=== PATIENT | male | born 1950 | race Caucasian/White ===

== ENCOUNTER → 2017-03-28 | Outpatient (REF) | payer OTHER ==
[2017-03-28 15:22] LABS: ALBUMIN 3.7 GM/DL (3.2-5.2); ALBUMIN/GLOBULIN RATIO 1.19 (1.00-1.93); BILIRUBIN,TOTAL 0.4 MG/DL (0.2-1.0); CREATININE FOR GFR 1.33 MG/DL (0.70-1.30); GLOMERULAR FILTRATION RATE 57.3 (>49); POTASSIUM SERUM 4.5 MEQ/L (3.5-5.1); TOTAL PROTEIN 6.8 GM/DL (6.4-8.2)
== END ==
LOC: M SFHCLACO 09:06
PROVIDERS: ATTEND Physician Assistant
DX: I10 Essential (primary) hypertension (principal); E78.2 Mixed hyperlipidemia

== ENCOUNTER → 2017-10-01 | Outpatient (REF) | payer MEDICARE, OTHER ==
[2017-10-01 13:23] LABS: ALBUMIN 3.6 GM/DL (3.2-5.2); ALKALINE PHOSPHATASE 53 U/L (45-117); ALT/SGPT 40 U/L (12-78); ANION GAP 6 MEQ/L (8-16); AST/SGOT 34 U/L (7-37); BILIRUBIN,TOTAL 0.4 MG/DL (0.2-1.0); BLOOD UREA NITROGEN 14 MG/DL (7-18); CALCIUM LEVEL 9.4 MG/DL (8.8-10.2); CARBON DIOXIDE LEVEL 31 MEQ/L (21-32); CHLORIDE LEVEL 93 MEQ/L (98-107); CHOLESTEROL LEVEL 249 MG/DL (<200); CREATININE FOR GFR 1.17 MG/DL (0.70-1.30); GLOMERULAR FILTRATION RATE > 60.0 (>49); GLUCOSE, FASTING 101 MG/DL (80-110); POTASSIUM SERUM 4.6 MEQ/L (3.5-5.1); SODIUM LEVEL 130 MEQ/L (136-145); TOTAL PROTEIN 6.6 GM/DL (6.4-8.2); TRIGLYCERIDES LEVEL 120 MG/DL (<150); URIC ACID 3.5 MG/DL (3.5-7.2)
== END ==
LOC: M SFHCLACO 08:54
PROVIDERS: ATTEND Physician Assistant
DX: I10 Essential (primary) hypertension (principal); E78.2 Mixed hyperlipidemia; M10.9 Gout, unspecified

== ENCOUNTER → 2018-04-15 | Outpatient (REF) | payer OTHER, MEDICARE ==
[2018-04-15 15:09] LABS: ALBUMIN 3.6 GM/DL (3.2-5.2); ALKALINE PHOSPHATASE 57 U/L (45-117); ALT/SGPT 31 U/L (12-78); ANION GAP 8 MEQ/L (8-16); AST/SGOT 32 U/L (7-37); BILIRUBIN,TOTAL 0.4 MG/DL (0.2-1.0); BLOOD UREA NITROGEN 16 MG/DL (7-18); CARBON DIOXIDE LEVEL 27 MEQ/L (21-32); CHLORIDE LEVEL 97 MEQ/L (98-107); CHOLESTEROL LEVEL 220 MG/DL (<200); CHOLESTEROL RISK RATIO 3.606 (<5); CREATININE FOR GFR 1.12 MG/DL (0.70-1.30); GLOMERULAR FILTRATION RATE > 60.0 (>49); GLUCOSE, FASTING 88 MG/DL (70-100); HDL CHOLESTEROL 61 MG/DL (>40); LDL CHOLESTEROL 133.2 MG/DL (<100); NON-HDL-C 159 MG/DL; POTASSIUM SERUM 4.3 MEQ/L (3.5-5.1); SODIUM LEVEL 132 MEQ/L (136-145); TOTAL PROTEIN 6.6 GM/DL (6.4-8.2); TRIGLYCERIDES LEVEL 129 MG/DL (<150)
== END ==
LOC: M SFHCLACO 08:11
DX: I10 Essential (primary) hypertension (principal); E78.2 Mixed hyperlipidemia; M10.9 Gout, unspecified
CPT/HCPCS: 84550

== ENCOUNTER → 2021-06-12 | Outpatient (REF) | payer MEDICARE | LOC: M SFHCADAM 11:41 | PROVIDERS: ATTEND Physician Assistant | DX: R73.9 Hyperglycemia, unspecified (principal) | CPT/HCPCS: 83036; G0463 ==

== ENCOUNTER → 2022-04-03 | Outpatient (REF) | payer MEDICARE ==
[2022-04-03 13:05] LABS: ALBUMIN 3.9 GM/DL (3.2-5.2); BILIRUBIN,TOTAL 0.6 MG/DL (0.2-1.0); CALCIUM LEVEL 9.9 MG/DL (8.8-10.2); CHOLESTEROL RISK RATIO 4.476 (<5); CREATININE FOR GFR 1.65 MG/DL (0.70-1.30); POTASSIUM SERUM 4.6 MEQ/L (3.5-5.1); TOTAL PROTEIN 7.4 GM/DL (6.4-8.2); URIC ACID 3.2 MG/DL (3.5-7.2)
[2022-04-03 13:18] LABS: HEMOGLOBIN A1c 5.9 %
== END ==
LOC: M SFHCADAM 10:26
PROVIDERS: ATTEND Physician Assistant
DX: E78.2 Mixed hyperlipidemia (principal); I10 Essential (primary) hypertension; R73.9 Hyperglycemia, unspecified; Z12.5 Encounter for screening for malignant neoplasm of prostate; M10.9 Gout, unspecified
CPT/HCPCS: 80053; 80061; 83036; 84550; G0103

== ENCOUNTER → 2022-07-18 | Outpatient (REF) | payer MEDICARE ==
[2022-07-18 17:31] LABS: HEMOGLOBIN A1c 5.7 %
[2022-07-18 17:32] LABS: HEMATOCRIT 35.9 % (42.0-52.0); HEMOGLOBIN 12.3 g/dl (13.5-17.5); MEAN CORPUSCULAR HEMOGLOBIN 32.5 pg (27.0-33.0); MEAN CORPUSCULAR HGB CONC 34.3 g/dl (32.0-36.5); MEAN CORPUSCULAR VOLUME 94.7 fl (80.0-96.0); PLATELET COUNT, AUTOMATED 456 10^3/uL (150-450); RED BLOOD COUNT 3.79 10^6/uL (4.30-6.10); WHITE BLOOD COUNT 7.8 10^3/uL (4.0-10.0)
[2022-07-18 17:54] LABS: ALBUMIN 3.8 GM/DL (3.2-5.2); BILIRUBIN,TOTAL 0.6 MG/DL (0.2-1.0); CREATININE FOR GFR 1.53 MG/DL (0.70-1.30); POTASSIUM SERUM 4.3 MEQ/L (3.5-5.1); TOTAL PROTEIN 7.4 GM/DL (6.4-8.2)
== END ==
LOC: M SFHCADAM 15:23
PROVIDERS: ATTEND Physician Assistant
DX: N18.32 Chronic kidney disease, stage 3b (principal); H91.93 Unspecified hearing loss, bilateral; R73.01 Impaired fasting glucose

== ENCOUNTER → 2022-07-25 | Outpatient (REF) | payer MEDICARE ==
[2022-07-25 19:17] LABS: ALBUMIN 3.6 GM/DL (3.2-5.2); BILIRUBIN,TOTAL 0.5 MG/DL (0.2-1.0); CALCIUM LEVEL 9.6 MG/DL (8.8-10.2); CREATININE FOR GFR 1.44 MG/DL (0.70-1.30); GLOMERULAR FILTRATION RATE 51.5 (>42); POTASSIUM SERUM 4.6 MEQ/L (3.5-5.1)
== END ==
LOC: M SFHCADAM 13:36
PROVIDERS: ATTEND Physician Assistant
DX: E87.1 Hypo-osmolality and hyponatremia (principal); R60.0 Localized edema

== ENCOUNTER → 2022-08-24 | Outpatient (REF) | payer MEDICARE ==
[2022-08-24 14:09] LABS: SODIUM,RANDOM URINE 23 MEQ/L
[2022-08-24 17:03] LABS: BLOOD UREA NITROGEN 11 MG/DL (7-18); CALCIUM LEVEL 9.2 MG/DL (8.8-10.2); CARBON DIOXIDE LEVEL 27 MEQ/L (21-32); CHLORIDE LEVEL 95 MEQ/L (98-107); CREATININE FOR GFR 1.17 MG/DL (0.70-1.30); FERRITIN 438 NG/ML (26-388); GLOMERULAR FILTRATION RATE > 60.0 (>42); GLUCOSE, FASTING 153 MG/DL (70-100); IRON (FE) 130 UG/DL (65-175); PERCENT SATURATION 47.6 % (19.7-50.0); POTASSIUM SERUM 4.6 MEQ/L (3.5-5.1); SODIUM LEVEL 129 MEQ/L (136-145); TOTAL IRON BINDING CAPACITY 273 UG/DL (250-450); VITAMIN B12 LEVEL 558 PG/ML (247-911)
[2022-08-24 17:21] LABS: OSMOLALITY SERUM 274 MOSM/KG (280-301)
[2022-08-24 22:43] LABS: OSMOLALITY URINE 212 MOSM/KG (50-1400)
== END ==
LOC: M SFHCADAM 10:48
PROVIDERS: ATTEND Physician Assistant
DX: E87.1 Hypo-osmolality and hyponatremia (principal); D64.9 Anemia, unspecified; R73.01 Impaired fasting glucose; R41.3 Other amnesia; F10.10 Alcohol abuse, uncomplicated

== ENCOUNTER → 2022-08-29 | Outpatient (REF) | payer MEDICARE ==
[2022-08-29 20:40] LABS: APPEARANCE, URINE MANUAL CLEAR (CLEAR); COLOR, URINE MANUAL YELLOW (YELLOW)
[2022-08-29 20:42] LABS: BILIRUBIN, URINE MANUAL NEGATIVE (NEGATIVE); BLOOD URINE MANUAL NEGATIVE (NEGATIVE); GLUCOSE, URINE (UA) MANUAL NEGATIVE (NEGATIVE); KETONE, URINE MANUAL NEGATIVE (NEGATIVE); LEUKOCYTE ESTERASE, URINE MAN NEGATIVE (NEGATIVE); NITRITE, URINE MANUAL NEGATIVE (NEGATIVE); PROTEIN, URINE MANUAL NEGATIVE (NEGATIVE); SPECIFIC GRAVITY,URINE MANUAL 1.015 (1.002-1.035); UROBILINOGEN, URINE MANUAL NORMAL (NORMAL)
== END ==
LOC: M SFHCADAM 16:34
PROVIDERS: ATTEND Physician Assistant
DX: R60.0 Localized edema (principal); F11.90 Opioid use, unspecified, uncomplicated

== ENCOUNTER → 2022-09-10 | Outpatient (CLI) | payer MEDICARE | LOC: M CARPUL 10:31 | PROVIDERS: ATTEND Physician Assistant | DX: R60.0 Localized edema (principal) ==

== ENCOUNTER → 2022-12-12 | Outpatient (REF) | payer MEDICARE | LOC: M SFHCADAM 11:50 | PROVIDERS: ATTEND Physician Assistant | DX: I10 Essential (primary) hypertension (principal); E78.2 Mixed hyperlipidemia; R60.9 Edema, unspecified; G43.909 Migraine, unspecified, not intractable, without status migrainosus; E22.2 Syndrome of inappropriate secretion of antidiuretic hormone; F10.10 Alcohol abuse, uncomplicated; Z12.11 Encounter for screening for malignant neoplasm of colon; F17.211 Nicotine dependence, cigarettes, in remission; N64.4 Mastodynia ==

== ENCOUNTER → 2023-01-24 | Outpatient (CLI) | payer MEDICARE | LOC: M RAD 08:21 | PROVIDERS: ATTEND Physician Assistant | DX: F17.211 Nicotine dependence, cigarettes, in remission (principal) ==

== ENCOUNTER 2023-04-30 11:05 | Day surgery (SDC) | payer MEDICARE ==
[~2023-04-30] VITALS: Ht 167.6 cm; Wt 83.2 kg
[~2023-04-30 11:05] MED LIST: ATOR40TA75 PO; CARV25TA PO; EQL50TAB2 PO; HYDR-3490 PO; IRBE300T7 PO; NS 1,000 ML IV ONE; OMEG10002 PO; TOPI25TA10 PO; VITMTA PO; ZYLO100T2 PO
[2023-04-30] MEDS ORDERED: propofoL 200 MG/20 ML VIAL As Ordered ONE (12:53)
[2023-04-30] MEDS ORDERED: LIDOCAINE 2% 100MG/5ML SDV (FOR ANES.) As Ordered ONE (12:53)
[2023-04-30 14:11] VITALS: BP 180/72; TEMP 97.2; O2SAT 95
== END 2023-04-30 14:00 | disposition home or self-care (01) ==
LOC: M OPP 11:05
PROVIDERS: ATTEND Internal Medicine Gastroenterology
DX: D50.9 Iron deficiency anemia, unspecified (principal); D12.6 Benign neoplasm of colon, unspecified; K57.30 Diverticulosis of large intestine without perforation or abscess without bleeding; K64.8 Other hemorrhoids; K25.9 Gastric ulcer, unspecified as acute or chronic, without hemorrhage or perforation; K22.89 Other specified disease of esophagus; K29.70 Gastritis, unspecified, without bleeding; I10 Essential (primary) hypertension; E78.5 Hyperlipidemia, unspecified; G43.909 Migraine, unspecified, not intractable, without status migrainosus; Z87.891 Personal history of nicotine dependence; Z79.899 Other long term (current) drug therapy; Z82.49 Family history of ischemic heart disease and other diseases of the circulatory system; Z80.8 Family history of malignant neoplasm of other organs or systems

== ENCOUNTER → 2023-09-11 | Outpatient (REF) | payer MEDICARE ==
[~2023-09-11] MED LIST changes: -NS 1,000 ML IV ONE
[2023-09-11 16:37] LABS: BASO # 0.1 10^3/uL (0.0-0.2); BASO % 0.7 % (0.0-1.0); EOS # 0.3 10^3/uL (0.0-0.5); EOS % 3.3 % (0.0-3.0); HEMATOCRIT 31.7 % (42.0-52.0); HEMOGLOBIN 10.6 g/dl (13.5-17.5); LYMPH # 2.3 10^3/uL (1.5-5.0); LYMPH % 26.4 % (24.0-44.0); MEAN CORPUSCULAR HEMOGLOBIN 33.2 pg (27.0-33.0); MEAN CORPUSCULAR HGB CONC 33.4 g/dl (32.0-36.5); MEAN CORPUSCULAR VOLUME 99.4 fl (80.0-96.0); MONO # 0.9 10^3/uL (0.0-0.8); MONO % 9.8 % (2.0-8.0); NEUTROPHILS # 5.2 10^3/uL (1.5-8.5); NEUTROPHILS % 59.7 % (36.0-66.0); PLATELET COUNT, AUTOMATED 364 10^3/uL (150-450); RED BLOOD COUNT 3.19 10^6/uL (4.30-6.10); WHITE BLOOD COUNT 8.7 10^3/uL (4.0-10.0)
[2023-09-11 16:50] LABS: ALKALINE PHOSPHATASE 65 U/L (46-116); ALT/SGPT 46 U/L (7.0-40); AST/SGOT 59 U/L (<34); BILIRUBIN,DIRECT 0.3 MG/DL (<0.4); BILIRUBIN,TOTAL 0.6 MG/DL (0.3-1.2); BLOOD UREA NITROGEN 6 MG/DL (9-23); CALCIUM LEVEL 8.5 MG/DL (8.3-10.6); CARBON DIOXIDE LEVEL 27 MMOL/L (20-31); CHLORIDE LEVEL 102 MMOL/L (98-107); CREATININE FOR GFR 0.93 MG/DL (0.70-1.30); GLOMERULAR FILTRATION RATE > 60.0 (>42); GLUCOSE, FASTING 157 MG/DL (74-106); IRON (FE) 82 UG/DL (65-175); PERCENT SATURATION 36.4 % (19.7-50.0); POTASSIUM SERUM 3.8 MMOL/L (3.5-5.1); SODIUM LEVEL 139 MMOL/L (136-145); TOTAL IRON BINDING CAPACITY 225 UG/DL (250-425); TOTAL PROTEIN 6.4 G/DL (5.7-8.2)
[2023-09-11 16:54] LABS: FERRITIN 440.9 NG/ML (10.5-307.3)
== END ==
LOC: M LABDRWAD 16:02
PROVIDERS: ATTEND Nurse Practitioner Family
DX: D50.9 Iron deficiency anemia, unspecified (principal); Z79.899 Other long term (current) drug therapy

== ENCOUNTER → 2023-09-11 | Outpatient (REF) | payer MEDICARE ==
[2023-09-11 16:39] LABS: BASO # 0.1 10^3/uL (0.0-0.2); BASO % 0.8 % (0.0-1.0); EOS # 0.2 10^3/uL (0.0-0.5); EOS % 2.8 % (0.0-3.0); HEMATOCRIT 32.5 % (42.0-52.0); HEMOGLOBIN 10.6 g/dl (13.5-17.5); LYMPH # 2.3 10^3/uL (1.5-5.0); LYMPH % 26.6 % (24.0-44.0); MEAN CORPUSCULAR HEMOGLOBIN 32.5 pg (27.0-33.0); MEAN CORPUSCULAR HGB CONC 32.6 g/dl (32.0-36.5); MEAN CORPUSCULAR VOLUME 99.7 fl (80.0-96.0); MONO # 0.8 10^3/uL (0.0-0.8); MONO % 9.7 % (2.0-8.0); NEUTROPHILS # 5.1 10^3/uL (1.5-8.5); NEUTROPHILS % 59.9 % (36.0-66.0); PLATELET COUNT, AUTOMATED 365 10^3/uL (150-450); RED BLOOD COUNT 3.26 10^6/uL (4.30-6.10); WHITE BLOOD COUNT 8.5 10^3/uL (4.0-10.0)
[2023-09-11 16:47] LABS: HEMOGLOBIN A1c 6.2 % (4.0-6.0)
[2023-09-11 16:51] LABS: ALKALINE PHOSPHATASE 64 U/L (46-116); ALT/SGPT 44 U/L (7.0-40); AST/SGOT 58 U/L (<34); BILIRUBIN,TOTAL 0.6 MG/DL (0.3-1.2); BLOOD UREA NITROGEN 6 MG/DL (9-23); CALCIUM LEVEL 8.6 MG/DL (8.3-10.6); CARBON DIOXIDE LEVEL 28 MMOL/L (20-31); CHLORIDE LEVEL 101 MMOL/L (98-107); CHOLESTEROL LEVEL 178 MG/DL (<200); CHOLESTEROL RISK RATIO 2.82 (<5); CREATININE FOR GFR 0.95 MG/DL (0.70-1.30); GLOMERULAR FILTRATION RATE > 60.0 (>42); GLUCOSE, FASTING 158 MG/DL (74-106); IRON (FE) 81 UG/DL (65-175); PERCENT SATURATION 36.7 % (19.7-50.0); POTASSIUM SERUM 3.8 MMOL/L (3.5-5.1); SODIUM LEVEL 138 MMOL/L (136-145); TOTAL IRON BINDING CAPACITY 221 UG/DL (250-425); TOTAL PROTEIN 6.4 G/DL (5.7-8.2); TRIGLYCERIDES LEVEL 120 MG/DL (<150)
[2023-09-11 17:16] LABS: FREE T4 1.02 NG/DL (0.89-1.76)
[2023-09-11 17:17] LABS: FERRITIN 479.4 NG/ML (10.5-307.3); THYROID STIMULATING HORMONE 2.013 uIU/ML (0.55-4.78)
== END ==
LOC: M SFHCADAM 13:49
PROVIDERS: ATTEND Physician Assistant
DX: I10 Essential (primary) hypertension (principal); D50.9 Iron deficiency anemia, unspecified; K25.4 Chronic or unspecified gastric ulcer with hemorrhage; E78.2 Mixed hyperlipidemia; R73.01 Impaired fasting glucose; Z12.5 Encounter for screening for malignant neoplasm of prostate
CPT/HCPCS: 80053; 80061; 80076; 82728; 82977; 83036; 83550; 84439; 84443; 85025; G0103

== ENCOUNTER → 2023-10-03 | Day surgery (SDC) | payer MEDICARE ==
[~2023-10-03] VITALS: Ht 167.6 cm; Wt 85.2 kg
[~2023-10-03] MED LIST changes: +AMLO1TAB24 PO; +NS 1,000 ML IV ONE; +PANT40TA29 PO; +SUCR1TAB56 PO; +fentaNYL 100 MCG/2 ML INJECTION As Ordered ONE; +propofoL 200 MG/20 ML VIAL As Ordered ONE
[2023-10-03 14:47] VITALS: BP 158/82; TEMP 96.1; O2SAT 93
== END | disposition home or self-care (01) ==
LOC: M OPP 11:21
PROVIDERS: ATTEND Internal Medicine Gastroenterology
DX: K29.70 Gastritis, unspecified, without bleeding (principal); K25.9 Gastric ulcer, unspecified as acute or chronic, without hemorrhage or perforation; D64.9 Anemia, unspecified; I10 Essential (primary) hypertension; E78.5 Hyperlipidemia, unspecified; K21.9 Gastro-esophageal reflux disease without esophagitis; G43.909 Migraine, unspecified, not intractable, without status migrainosus; M10.9 Gout, unspecified; K76.0 Fatty (change of) liver, not elsewhere classified; Z87.891 Personal history of nicotine dependence; Z79.899 Other long term (current) drug therapy; Z82.49 Family history of ischemic heart disease and other diseases of the circulatory system
CPT/HCPCS: 43239; 88305; J3010

== ENCOUNTER → 2023-10-04 | Outpatient (REF) | payer MEDICARE ==
[~2023-10-04] MED LIST changes: -NS 1,000 ML IV ONE; -fentaNYL 100 MCG/2 ML INJECTION As Ordered ONE; -propofoL 200 MG/20 ML VIAL As Ordered ONE
[2023-10-04 15:14] LABS: INR 1.16
[2023-10-04 15:15] LABS: PARTIAL THROMBOPLASTIN TIME 31.5 SECONDS (24.8-34.2)
[2023-10-08 12:33] LABS: PROTHROMBIN TIME 14.5 SECONDS (12.5-14.5)
[2023-10-11 16:07] LABS: FREE KAPPA LIGHT CHAINS SERUM 38.7 mg/L (3.3-19.4); FREE LAMBDA LIGHT CHAINS SERUM 46.9 mg/L (5.7-26.3); KAPPA/LAMBDA RATIO SERUM 0.83 (0.26-1.65)
== END ==
LOC: M SFHCADAM 13:45
PROVIDERS: ATTEND Physician Assistant
DX: R74.8 Abnormal levels of other serum enzymes (principal); F10.10 Alcohol abuse, uncomplicated; D50.9 Iron deficiency anemia, unspecified; D75.89 Other specified diseases of blood and blood-forming organs; K25.4 Chronic or unspecified gastric ulcer with hemorrhage

== ENCOUNTER → 2023-11-22 | Outpatient (CLI) | payer MEDICARE | LOC: M RAD 08:17 | PROVIDERS: ATTEND Nurse Practitioner Family | DX: K76.0 Fatty (change of) liver, not elsewhere classified (principal); K76.89 Other specified diseases of liver; R94.5 Abnormal results of liver function studies; R09.89 Other specified symptoms and signs involving the circulatory and respiratory systems ==

== ENCOUNTER → 2024-04-02 | Outpatient (REF) | payer MEDICARE ==
[~2024-04-02] MED LIST changes: +IRBE300T25 PO; -IRBE300T7 PO
[2024-04-02 14:26] LABS: BASO # 0.1 10^3/uL (0.0-0.2); BASO % 0.9 % (0.0-1.0); EOS # 0.4 10^3/uL (0.0-0.5); EOS % 3.7 % (0.0-3.0); HEMATOCRIT 40.6 % (42.0-52.0); HEMOGLOBIN 13.4 g/dl (13.5-17.5); LYMPH # 2.7 10^3/uL (1.5-5.0); LYMPH % 23.3 % (24.0-44.0); MEAN CORPUSCULAR HEMOGLOBIN 33.3 pg (27.0-33.0); MONO # 0.9 10^3/uL (0.0-0.8); MONO % 7.8 % (2.0-8.0); NEUTROPHILS # 7.4 10^3/uL (1.5-8.5); PLATELET COUNT, AUTOMATED 346 10^3/uL (150-450); RED BLOOD COUNT 4.02 10^6/uL (4.30-6.10); WHITE BLOOD COUNT 11.5 10^3/uL (4.0-10.0)
[2024-04-02 15:24] LABS: ALBUMIN 3.1 G/DL (3.2-5.2); ALKALINE PHOSPHATASE 68 U/L (46-116); ALT/SGPT 20 U/L (7.0-40); AST/SGOT 27 U/L (<34); BILIRUBIN,TOTAL 0.6 MG/DL (0.3-1.2); BLOOD UREA NITROGEN 12 MG/DL (9-23); CALCIUM LEVEL 9.3 MG/DL (8.3-10.6); CARBON DIOXIDE LEVEL 27 MMOL/L (20-31); CHLORIDE LEVEL 106 MMOL/L (98-107); CREATININE FOR GFR 0.97 MG/DL (0.70-1.30); GLOMERULAR FILTRATION RATE > 60.0 (>42); GLUCOSE, FASTING 112 MG/DL (74-106); POTASSIUM SERUM 4.6 MMOL/L (3.5-5.1); SODIUM LEVEL 138 MMOL/L (136-145); TOTAL PROTEIN 6.3 G/DL (5.7-8.2); VITAMIN B12 LEVEL 697 PG/ML (211-911)
[2024-04-02 15:25] LABS: FOLATE > 24.0 NG/ML (>5.4)
== END ==
LOC: M SFHCADAM 10:49
PROVIDERS: ATTEND Physician Assistant
DX: R60.0 Localized edema (principal); E78.2 Mixed hyperlipidemia; L30.9 Dermatitis, unspecified; I87.2 Venous insufficiency (chronic) (peripheral); G62.9 Polyneuropathy, unspecified; K25.4 Chronic or unspecified gastric ulcer with hemorrhage; K74.00 Hepatic fibrosis, unspecified; F10.10 Alcohol abuse, uncomplicated; L81.9 Disorder of pigmentation, unspecified

== ENCOUNTER → 2024-05-20 | Outpatient (CLI) | payer MEDICARE | LOC: M WHC 09:30 | PROVIDERS: ATTEND Physician Assistant | DX: N64.4 Mastodynia (principal) | CPT/HCPCS: 77066; G0279 ==

== ENCOUNTER → 2024-07-31 | Outpatient (CLI) | payer MEDICARE | LOC: M RAD 13:51 | PROVIDERS: ATTEND Physician Assistant | DX: Z12.2 Encounter for screening for malignant neoplasm of respiratory organs (principal); F17.211 Nicotine dependence, cigarettes, in remission; R59.0 Localized enlarged lymph nodes ==

== ENCOUNTER → 2024-08-04 | Outpatient (REF) | payer MEDICARE | LOC: M SFHCADAM 15:53 | PROVIDERS: ATTEND Physician Assistant | DX: K74.00 Hepatic fibrosis, unspecified (principal); I12.9 Hypertensive chronic kidney disease with stage 1 through stage 4 chronic kidney disease, or unspecified chronic kidney disease; E78.2 Mixed hyperlipidemia; F10.10 Alcohol abuse, uncomplicated; F17.211 Nicotine dependence, cigarettes, in remission; N18.32 Chronic kidney disease, stage 3b; R73.03 Prediabetes; M10.9 Gout, unspecified ==

== ENCOUNTER → 2024-09-02 | Outpatient (CLI) | payer MEDICARE | LOC: M RAD 08:38 | PROVIDERS: ATTEND Physician Assistant | DX: K74.00 Hepatic fibrosis, unspecified (principal) ==

== ENCOUNTER → 2024-12-03 | Outpatient (REF) | payer MEDICARE ==
[2024-12-03 17:43] LABS: HEMOGLOBIN 12.9 g/dl (13.5-17.5); MEAN CORPUSCULAR HEMOGLOBIN 33.6 pg (27.0-33.0); MEAN CORPUSCULAR HGB CONC 33.1 g/dl (32.0-36.5); MEAN CORPUSCULAR VOLUME 101.6 fl (80.0-96.0); PLATELET COUNT, AUTOMATED 356 10^3/uL (150-450); RED BLOOD COUNT 3.84 10^6/uL (4.30-6.10); WHITE BLOOD COUNT 10.7 10^3/uL (4.0-10.0)
[2024-12-03 17:56] LABS: INR 0.95
[2024-12-03 18:02] LABS: ALBUMIN 3.3 G/DL (3.2-5.2); ALKALINE PHOSPHATASE 62 U/L (40-129); ALT/SGPT 21 U/L (7.0-40); AST/SGOT 22 U/L (<34); BILIRUBIN,TOTAL 0.6 MG/DL (0.3-1.2); BLOOD UREA NITROGEN 15 MG/DL (9-23); CALCIUM LEVEL 9.8 MG/DL (8.3-10.6); CARBON DIOXIDE LEVEL 26 MMOL/L (20-31); CHLORIDE LEVEL 108 MMOL/L (98-107); CREATININE FOR GFR 0.97 MG/DL (0.70-1.30); GLOMERULAR FILTRATION RATE > 60.0 (>42); GLUCOSE, FASTING 115 MG/DL (74-106); POTASSIUM SERUM 4.7 MMOL/L (3.5-5.1); PSA SCREENING 0.44 NG/ML (< 4.00); SODIUM LEVEL 141 MMOL/L (136-145); TOTAL PROTEIN 6.6 G/DL (5.7-8.2)
[2024-12-03 19:16] LABS: HEMOGLOBIN A1c 5.3 % (4.0-6.0)
== END ==
LOC: M SFHCADAM 11:10
PROVIDERS: ATTEND Physician Assistant
DX: K74.00 Hepatic fibrosis, unspecified (principal); R73.03 Prediabetes; R79.89 Other specified abnormal findings of blood chemistry; Z12.5 Encounter for screening for malignant neoplasm of prostate
CPT/HCPCS: 80053; 81256; 83036; 85027; 85610; 86255; G0103

== ENCOUNTER → 2025-03-17 | Outpatient (CLI) | payer MEDICARE ==
[~2025-03-17] MED LIST changes: +TOPI-256 PO; -TOPI25TA10 PO
== END ==
LOC: M WHC 09:34
PROVIDERS: ATTEND Family Medicine
DX: N64.9 Disorder of breast, unspecified (principal)
CPT/HCPCS: 77066; G0279

== ENCOUNTER → 2025-06-08 | Outpatient (REF) | payer MEDICARE ==
[~2025-06-08] MED LIST changes: -EQL50TAB2 PO; +VITA1TAB82 PO
[2025-06-08 19:11] LABS: BASO # 0.1 10^3/uL (0.0-0.2); BASO % 0.9 % (0.0-1.0); EOS # 0.7 10^3/uL (0.0-0.5); EOS % 6.3 % (0.0-3.0); LYMPH # 2.6 10^3/uL (1.5-5.0); LYMPH % 22.4 % (24.0-44.0); MONO # 0.8 10^3/uL (0.0-0.8); MONO % 7.4 % (2.0-8.0); NEUTROPHILS # 7.2 10^3/uL (1.5-8.5); NEUTROPHILS % 62.7 % (36.0-66.0); PLATELET COUNT, AUTOMATED 401 10^3/uL (150-450)
[2025-06-08 19:46] LABS: ALT/SGPT 18.0 U/L (7.0-40); AST/SGOT 21.0 U/L (<34); CALCIUM LEVEL 9.3 MG/DL (8.3-10.6); CARBON DIOXIDE LEVEL 25.0 MMOL/L (20-31); CHLORIDE LEVEL 100.0 MMOL/L (98-107); CHOLESTEROL LEVEL 182.0 MG/DL (<200); CHOLESTEROL RISK RATIO 3.07 (<5); CREATININE FOR GFR 1.05 MG/DL (0.70-1.30); GLOMERULAR FILTRATION RATE 74.5 (>42); IRON (FE) 72.0 UG/DL (65-175); LDL CHOLESTEROL 88.3 MG/DL (<100); NON-HDL-C 122.9 MG/DL; PERCENT SATURATION 26.5 % (19.7-50.0); POTASSIUM SERUM 5.6 MMOL/L (3.5-5.1); SODIUM LEVEL 134.0 MMOL/L (136-145); TRIGLYCERIDES LEVEL 173.0 MG/DL (<150)
[2025-06-08 19:47] LABS: VITAMIN B12 LEVEL 892.0 PG/ML (211-911)
== END ==
LOC: M SFHCADAM 12:24
PROVIDERS: ATTEND Physician Assistant
DX: K74.00 Hepatic fibrosis, unspecified (principal); N18.32 Chronic kidney disease, stage 3b; Z13.220 Encounter for screening for lipoid disorders; D64.9 Anemia, unspecified

== ENCOUNTER → 2025-10-22 | Outpatient (CLI) | payer MEDICARE | LOC: M RAD 14:24 | PROVIDERS: ATTEND Physician Assistant | DX: F17.210 Nicotine dependence, cigarettes, uncomplicated (principal) ==